=== PATIENT | female | born 1930 | race African-American/Black ===

== ENCOUNTER 2016-12-03 03:07 | Emergency (ER) | payer SELFPAY ==
[~2016-12-03] VITALS: Ht 157.5 cm; Wt 54.4 kg
[2016-12-03 03:15] VITALS: BP 189/80
[2016-12-03] MEDS ORDERED: IBUPROFEN600 MG ORAL (03:29)
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
[2016-12-03 05:49] VITALS: BP 159/80
[2016-12-03 05:59] VITALS: BP 159/80
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
== END 2016-12-03 05:49 | disposition home or self-care (01) ==
LOC: EDBD 03:07 → EMR 03:23
DX: S00.83XA Contusion of other part of head, initial encounter (principal); V49.40XA Driver injured in collision with unspecified motor vehicles in traffic accident, initial encounter; Y92.414 Local residential or business street as the place of occurrence of the external cause; I10 Essential (primary) hypertension; Z95.0 Presence of cardiac pacemaker; I51.7 Cardiomegaly
CPT/HCPCS: 70110; 71010; 99284